=== PATIENT | male | born 1990 ===

== ENCOUNTER 2021-02-05 19:26 | Emergency (ER) | payer OTHER, SELFPAY ==
--- NOTE | ~2021-02-05 | XR_ITS ---
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 COMPARISON: None available FINDINGS: There is diffuse soft tissue swelling of the third finger, particularly at the distal aspec t. There is an approximately 10 mm sclerotic lesion at the lateral aspect of the third distal phalanx . No definite fracture is identified. There is moderate joint space loss at the third distal interpha langeal joint. IMPRESSION: 1. Soft tissue swelling and sclerotic mass of the third distal phalanx without definite acute osseous findings seen. Reviewed, dictated and finalized at location A.
[2021-02-05 19:28] VITALS: BP 112/85; PULSE 87; RESP 16; TEMP 36.5; O2SAT 98
--- NOTE | 2021-02-05 21:00 | PC.NURSE ---
Patient seen leaving ED with his visitor. Patient left at 2100.
== END 2021-02-05 21:00 | disposition left against medical advice (07) ==
PROVIDERS: Emergency Provider Emergency Medicine
DX: S69.91XA Unspecified injury of right wrist, hand and finger(s), initial encounter (principal)
CPT/HCPCS: 73140; 99199